=== PATIENT | female | born 1980 | race African-American/Black ===

== ENCOUNTER → 2017-01-19 | Outpatient (CLI) | payer BC, OTHER ==
[~2017-01-19] MED LIST: AUGMENTIN 875875 MG PO; FLOMAX PO; IBUPROFEN 600600 M1 PO; NOHOMEMEDICATIONS; NORCO 5-325 TA1 EACH PO; NUVARING VAGIN1 EACH VG; VALIUM5 MG PO; ZOFRAN ODT4 MG PO
== END ==
LOC: NUC 09:08
DX: Z78.0 Asymptomatic menopausal state (principal); R29.890 Loss of height

== ENCOUNTER → 2018-07-31 | Outpatient (CLI) | payer BC, OTHER | LOC: ULTRA 13:29 | DX: E04.1 Nontoxic single thyroid nodule (principal) ==

== ENCOUNTER → 2018-08-14 | Outpatient (CLI) | payer BC | LOC: ULTRA 11:29 | DX: M25.811 Other specified joint disorders, right shoulder (principal); R22.31 Localized swelling, mass and lump, right upper limb ==

== ENCOUNTER → 2019-02-28 | Outpatient (CLI) | payer BC | LOC: RAD 15:32 | DX: R05 Cough (principal) ==